=== PATIENT | male | born 1970 | race Caucasian/White ===

== ENCOUNTER 2022-11-29 09:31 | Outpatient (CLI) | payer BC | END 2022-11-29 09:32 | disposition home or self-care (01) | LOC: SCSCT 09:31 | PROVIDERS: ATTEND Otolaryngology Plastic Surgery within the Head & Neck | DX: H90.A31 Mixed conductive and sensorineural hearing loss, unilateral, right ear with restricted hearing on the contralateral side (principal); H74.8X1 Other specified disorders of right middle ear and mastoid | CPT/HCPCS: 70480 ==